=== PATIENT | male | born 1995 | race Caucasian/White ===

== ENCOUNTER 2017-07-15 10:38 | Emergency (ER) | payer OTHER ==
[2017-07-15] MEDS: IBUPROFEN 800 MG TAB PO (13:09)
== END 2017-07-15 14:19 | disposition home or self-care (01) ==
LOC: M ED 10:38
DX: S60.042A Contusion of left ring finger without damage to nail, initial encounter (principal); S30.0XXA Contusion of lower back and pelvis, initial encounter; W10.8XXA Fall (on) (from) other stairs and steps, initial encounter; Y92.018 Other place in single-family (private) house as the place of occurrence of the external cause; Y93.89 Activity, other specified; Y99.8 Other external cause status
CPT/HCPCS: 72072

== ENCOUNTER 2018-08-11 07:23 | Emergency (ER) | payer OTHER ==
[~2018-08-11] VITALS: Ht 170.2 cm; Wt 65.9 kg
[2018-08-11] MEDS ORDERED: LIDOCAINE 1% MDV 20ML VIAL SC ONE (08:30)
[2018-08-11] MEDS ORDERED: DERMABOND TOPICAL SKIN ADHESIVE TOP ONE (09:00)
[2018-08-11] MEDS ORDERED: KEFL500C17 PO (09:47)
[2018-08-11 09:49] VITALS: BP 126/70
== END 2018-08-11 09:57 | disposition home or self-care (01) ==
LOC: M ED 07:23
DX: S91.312A Laceration without foreign body, left foot, initial encounter (principal); X58.XXXA Exposure to other specified factors, initial encounter; Y92.099 Unspecified place in other non-institutional residence as the place of occurrence of the external cause; Y93.9 Activity, unspecified; Y99.9 Unspecified external cause status

== ENCOUNTER 2019-08-16 18:20 | Inpatient (IN) | payer OTHER ==
[~2019-08-16] VITALS: Ht 167.6 cm; Wt 62.2 kg
[~2019-08-16 18:20] MED LIST: KEFL500C17 PO
[2019-08-16] MEDS ORDERED: ONDANSETRON 4MG/2ML VIAL (J2405) IV ONE (19:00)
[2019-08-16] MEDS ORDERED: NS 1,000 ML IV ONE ×2 (19:00→20:30)
[2019-08-16] MEDS ORDERED: MORPHINE 4 MG/ML 1ML VIAL/SYRINGE (J2270) IV ONE (19:00)
[2019-08-16 19:08] LABS: BASO % 0.3 % (0.0-1.0); EOS % 0.1 % (0.0-3.0); HEMATOCRIT 49.3 % (42.0-52.0); LYMPH # 0.4 10^3/uL (1.5-5.0); LYMPH % 3.1 % (24.0-44.0); MEAN CORPUSCULAR HEMOGLOBIN 29.1 pg (27.0-33.0); MEAN CORPUSCULAR HGB CONC 34.5 g/dl (32.0-36.5); MEAN CORPUSCULAR VOLUME 84.3 fl (80.0-96.0); MONO # 0.6 10^3/uL (0.0-0.8); MONO % 4.9 % (0.0-5.0); NEUTROPHILS # 10.7 10^3/uL (1.5-8.5); NEUTROPHILS % 91.2 % (36.0-66.0); PLATELET COUNT, AUTOMATED 260 10^3/uL (150-450); RED BLOOD COUNT 5.85 10^6/uL (4.30-6.10); WHITE BLOOD COUNT 11.8 10^3/uL (4.0-10.0)
[2019-08-16 19:33] LABS: ALBUMIN 4.5 GM/DL (3.2-5.2); ALT/SGPT 28 U/L (12-78); BILIRUBIN,DIRECT 0.3 MG/DL (0.0-0.2); BILIRUBIN,TOTAL 1.5 MG/DL (0.2-1.0); LIPASE 68 U/L (73-393); TOTAL PROTEIN 7.5 GM/DL (6.4-8.2)
[2019-08-16 19:46] LABS: VENOUS BASE EXCESS -5.9 (-2.0-2.0); VENOUS HCO3 15.3 MEQ/L (23.0-27.0); VENOUS O2 SATURATION 99.5 % (60.0-80.0); VENOUS PARTIAL PRESSURE CO2 21.9 mmHg (38.0-50.0); VENOUS PARTIAL PRESSURE O2 201.8 mmHg (30.0-50.0); VENOUS PH 7.462 UNITS (7.330-7.430); VENOUS STANDARD HCO3 19.8 MEQ/L
[2019-08-16 19:54] LABS: HEMOGLOBIN A1c 12.6 %
[2019-08-16 19:58] LABS: ACETONE/KETONE 43.75 MG/DL (<2.81); CK-MB VALUE MASS < 1.0 NG/ML (<3.6); CPK CREATINE PHOSPHOKINASE 105 U/L (39-308); MB/CK RELATIVE INDEX 0.95 (< OR =4); TROPONIN I < 0.02 NG/ML (< 0.10)
[2019-08-16 20:04] LABS: INFLUENZA A AMPLIFICATION NEGATIVE (NEGATIVE); INFLUENZA B AMPLIFICATION NEGATIVE (NEGATIVE)
[2019-08-16 20:16] LABS: BLOOD UREA NITROGEN 13 MG/DL (7-18); CARBON DIOXIDE LEVEL 17 MEQ/L (21-32); CHLORIDE LEVEL 102 MEQ/L (98-107); CREATININE FOR GFR 0.98 MG/DL (0.70-1.30); GLOMERULAR FILTRATION RATE > 60.0 (>60); GLUCOSE, FASTING 291 MG/DL (70-100); POTASSIUM SERUM 3.9 MEQ/L (3.5-5.1); SODIUM LEVEL 138 MEQ/L (136-145)
[2019-08-16] MEDS ORDERED: ACETAMINOPHEN 325 MG TAB PO ONE (20:45)
[2019-08-16] MEDS ORDERED: INSULIN IV RATE CHANGE DOCUMENTATION ML/HR XX SCH (21:00)
[2019-08-16] MEDS ORDERED: KCL 20MEQ IN 100ML SWI (KRUN) 20 MEQ in IV 1 EA IV ONE ×2 (21:00)
[2019-08-16] MEDS: INSULIN HUMAN REGULAR 100 UNITS in NS 99 ML IV SCH ×2 (21:05→21:11)
--- NOTE | 2019-08-16 21:05 | HPEPDOC ---
[facility] Medical History & Physical Date of Admission Aug 16, 2019 Date of Service: Aug 16, 2019 Primary Care Physician: A Other Provider [facility] Attending Physician: MARY LOU SENIOR MD History and Physical TIME OF SERVICE: 9:30 PM CC time 40 min CHIEF COMPLAINT: Abdominal pain HISTORY OF PRESENT ILLNESS: This is a 24-year-old male who presents with complaints of 10/10 in severity constant abdominal pain that began last night He was able to sleep at this morning after drinking a sugary drink the pain reoccurred. He has also had several episodes of emesis and diarrhea. He has noticed feeling very thirsty since July. REVIEW OF SYSTEMS: 12 point review of systems negative except as listed in HPI PAST MEDICAL/ SURGICAL HISTORY: None prior to this admission SOCIAL HISTORY: He doesn't smoke. 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 HISTORY: Diabetes CVA ALLERGIES: Please see below HOME MEDICATIONS: Please see below PHYSICAL EXAMINATION: VITAL SIGNS: Please see below GEN: well-nourished / well developed/ NAD INTEGUMENT: Slightly flushed/ not jaundice HEENT: NCAT / lips acyanotic /mucus membranes dry CVS: RRR/NMRG/ no JVP / radial and dorsalis pedis pulses intact / no lower extremity edema LUNGS: clear to auscultation bilaterally on room air ABDOMEN: Contour (flat) / there are no masses or lesions / the abdomen is tympanic on percussion, soft & tender with palpation NEURO: CN 2-12 are grossly intact / speech is not dysarthric PSYCH: alert and oriented to person place and time/ able to understand and follow all commands LABORATORY DATA: See below. ASSESSMENT: Mr. Woodard is a 24-year-old male with newly diagnosed DM that is admitted for management of DKA. PLAN: 1. DKA Diagnostic made based on gluc >250 + bicarbonate <18 + BHB The trigger of DKA is likely likely new onset DM1 His A1c is 12.6% DKA MPM Score to predict risk of in hospital mortality at presentation = 0 points Plan: admit to ICU /NPO / Insulin drip per protocol/ IVF @250ml/H / f/u blood cx & UCx / f/u accuchecks Q1H, BMP Q4H, venous PH Q4H, osmol Q4H, Mag Q4H, phosp Q4H / WHEN the serum glucose is <200 + the patient is able to eat, and two of the following are met: AG <12 and/or bicarbonate >15 and/or pH >7.30 we will give him long acting insulin based on his weight and then jaime of insulin drip for 2 hours / he can received DM education in the morning / we will check autoantibodies against islet cells, GAD65, IA2 and ZnT8 to confirm that he has DM1 / he will need referral to an grinder set up operator thread tool on an out patient basis DVT PROPHYLAXIS: Lovenox DISPOSITION: Home after more than 2 midnight's stay Vital Signs Vital Signs Date Time Temp Pulse Resp B/P (MAP) Pulse Ox O2 Delivery O2 Flow Rate FiO2 08/16/19 20:50 96 98 Room Air 08/16/19 20:45 129/74 (92) 08/16/19 20:35 22 08/16/19 19:16 100.4 Laboratory Data Labs 24H Laboratory Tests 2 08/16/19 18:54: Immature Granulocyte % (Auto) 0.4, Neutrophils (%) (Auto) 91.2H, Lymphocytes (%) (Auto) 3.1L, Monocytes (%) (Auto) 4.9, Eosinophils (%) (Auto) 0.1, Basophils (%) (Auto) 0.3, Neutrophils # (Auto) 10.7H, Lymphocytes # (Auto) 0.4L, Monocytes # (Auto) 0.6, Eosinophils # (Auto) 0.0, Basophils # (Auto) 0.0, Nucleated Red Blood Cells % (auto) 0.0, Anion Gap 19H, Glomerular Filtration Rate > 60.0, Calcium Level 9.0, Total Bilirubin 1.5H, Direct Bilirubin 0.3H, Aspartate Amino Transf (AST/SGOT) 17, Alanine Aminotransferase (ALT/SGPT) 28, Alkaline Phosphatase 117, Total Creatine Kinase 105, Creatine Kinase MB < 1.0, Creatine Kinase MB Relative Index 0.95, Troponin I < 0.02, Total Protein 7.5, Albumin 4.5, Albumin/Globulin Ratio 1.50, Lipase 68L, B-Hydroxybutyrate 43.75H 08/16/19 18:55: POC Glucose (Misc Panel) 306H, POC Sodium (Misc Panel) 137, POC Potassium (Misc Panel) 3.7, POC Chloride (Misc Panel) 101, POC Total CO2 (Misc Panel) 17.0L, POC Blood Urea Nitrogen (Misc Panel 14, POC Ionized Calcium (Misc Panel) 4.4L, POC Creatinine (Misc Panel) 0.7, POC Hematocrit (Misc Panel) 52.0H 08/16/19 19:27: Influenza Type A (RT-PCR) NEGATIVE, Influenza Type B (RT-PCR) NEGATIVE 08/16/19 19:34: Estimated Mean Plasma Glucose 315H, Hemoglobin A1c 12.6 08/16/19 19:40: Blood Gas Bicarbonate Standard 19.8, Venous Blood pH 7.462H, Venous Blood Partial Pressure CO2 21.9L, Venous Blood Partial Pressure O2 201.8H, Venous Blood Total Carbon Dioxide 16.0L, Venous Blood HCO3 15.3L, Venous Blood Oxygen Saturation 99.5H, Venous Blood Base Excess -5.9L 08/16/19 20:30: Bedside Glucose (Misc Panel) 291H CBC/BMP Laboratory Tests 08/16/19 18:54 Home Medications No Active Prescriptions or Reported Meds Allergies Coded Allergies: No Known Allergies (Unverified , 07/15/17) A-FIB/CHADSVASC A-FIB History Current/History of A-Fib/PAF?: No Current PO Anticoag Therapy: No MARY LOU SENIOR MD Aug 16, 2019 21:05
[2019-08-16 21:31] LABS: VENOUS BASE EXCESS -4.4 (-2.0-2.0); VENOUS HCO3 20.1 MEQ/L (23.0-27.0); VENOUS O2 SATURATION 93.8 % (60.0-80.0); VENOUS PARTIAL PRESSURE CO2 35.4 mmHg (38.0-50.0); VENOUS PH 7.371 UNITS (7.330-7.430); VENOUS STANDARD HCO3 20.8 MEQ/L; VENOUS TOTAL CO2 21.1 MEQ/L (24.0-28.0)
[2019-08-16 21:49] LABS: OSMOLALITY SERUM 290 MOSM/KG (275-295)
[2019-08-16 22:00] LABS: BLOOD UREA NITROGEN 13 MG/DL (7-18); CALCIUM LEVEL 7.5 MG/DL (8.5-10.1); CARBON DIOXIDE LEVEL 21 MEQ/L (21-32); CHLORIDE LEVEL 107 MEQ/L (98-107); CREATININE FOR GFR 0.75 MG/DL (0.70-1.30); GLOMERULAR FILTRATION RATE > 60.0 (>60); GLUCOSE, FASTING 233 MG/DL (70-100); MAGNESIUM LEVEL 1.4 MG/DL (1.8-2.4); PHOSPHORUS LEVEL 1.7 MG/DL (2.5-4.9); POTASSIUM SERUM 3.8 MEQ/L (3.5-5.1); SODIUM LEVEL 139 MEQ/L (136-145)
[2019-08-16] MEDS ORDERED: ONDANSETRON 4MG/2ML VIAL (J2405) IV PRN (22:00)
[2019-08-16] MEDS ORDERED: HumuLIN R (REGULAR) INSULIN (NovoLIN R) **100U/ML** PER UNIT IV ONE (22:00)
[2019-08-16] MEDS ORDERED: INSULIN HUMAN REGULAR 100 UNITS in NS 99 ML IV SCH (22:00)
[2019-08-16] MEDS: INSULIN IV RATE CHANGE DOCUMENTATION ML/HR XX SCH ×2 (22:04→23:05)
[2019-08-16] MEDS ORDERED: GLUCAGON FOR INJ 1 MG VIAL (J1610) SC PRN (22:30)
[2019-08-16] MEDS ORDERED: GLUCOSE 4 GM CHEW TABLET PO PRN (22:30)
[2019-08-16] MEDS ORDERED: DEXTROSE 50% 50 ML SYRINGE IV PRN (22:30)
[2019-08-16] MEDS ORDERED: POTASSIUM PHOSPHATE INJ 15 MMOL in D5W 250 ML IV ONE (23:00)
[2019-08-16] MEDS ORDERED: MAG SULF 1GM/100ML (MAG RUN) 1 GM in IV 1 EA IV ONE (23:00)
[2019-08-16] MEDS ORDERED: POTASSIUM CHLORIDE INJ 30 MEQ in NS 0.45% 1,000 ML IV SCH (23:00)
[2019-08-16] MEDS: POTASSIUM CHLORIDE INJ 30 MEQ in D5W/0.45% SODIUM CHLORIDE 1,000 ML IV SCH (23:06)
[2019-08-16] MEDS ORDERED: LEVEMIR (INSULIN DETEMIR) 1 UNITS/0.01ML As Ordered ONE (23:33)
[2019-08-17] MEDS ORDERED: LEVEMIR (INSULIN DETEMIR) 1 UNITS/0.01ML SC ONE
[2019-08-17] MEDS ORDERED: INSULIN IV RATE CHANGE DOCUMENTATION ML/HR XX SCH (00:15)
[2019-08-17] MEDS ORDERED: INSULIN HUMAN REGULAR 100 UNITS in NS 99 ML IV SCH (01:00)
[2019-08-17] MEDS: POTASSIUM CHLORIDE INJ 30 MEQ in D5W/0.45% SODIUM CHLORIDE 1,000 ML IV SCH (02:43)
[2019-08-17 03:16] LABS: VENOUS BASE EXCESS -3.8 (-2.0-2.0); VENOUS O2 SATURATION 98.8 % (60.0-80.0); VENOUS PARTIAL PRESSURE CO2 37.6 mmHg (38.0-50.0); VENOUS PARTIAL PRESSURE O2 152.1 mmHg (30.0-50.0); VENOUS PH 7.365 UNITS (7.330-7.430); VENOUS STANDARD HCO3 21.3 MEQ/L; VENOUS TOTAL CO2 22.2 MEQ/L (24.0-28.0)
[2019-08-17 03:42] LABS: OSMOLALITY SERUM 290 MOSM/KG (275-295)
[2019-08-17 03:44] LABS: BLOOD UREA NITROGEN 11 MG/DL (7-18); CALCIUM LEVEL 7.3 MG/DL (8.5-10.1); CARBON DIOXIDE LEVEL 24 MEQ/L (21-32); CHLORIDE LEVEL 109 MEQ/L (98-107); CREATININE FOR GFR 0.83 MG/DL (0.70-1.30); GLOMERULAR FILTRATION RATE > 60.0 (>60); GLUCOSE, FASTING 142 MG/DL (70-100); PHOSPHORUS LEVEL 4.3 MG/DL (2.5-4.9); POTASSIUM SERUM 3.9 MEQ/L (3.5-5.1); SODIUM LEVEL 143 MEQ/L (136-145)
[2019-08-17 04:00] VITALS: BP 121/65
[2019-08-17] MEDS ORDERED: POTASSIUM PHOSPHATE INJ 15 MMOL in D5W 250 ML IV ONE (04:00)
[2019-08-17] MEDS ORDERED: KCL 40MEQ in NS 1000ML 1,000 ML IV SCH (04:00)
[2019-08-17] MEDS ORDERED: HumaLOG INSULIN (NovoLOG) PER UNIT SC SCH ×5 (06:00→21:00)
[2019-08-17] MEDS ORDERED: DEXTROSE 50% 50 ML SYRINGE IV PRN (08:45)
[2019-08-17] MEDS ORDERED: GLUCAGON FOR INJ 1 MG VIAL (J1610) SC PRN (08:45)
[2019-08-17] MEDS ORDERED: GLUCOSE 4 GM CHEW TABLET PO PRN (08:45)
[2019-08-17] MEDS ORDERED: ENOXAPARIN 40 MG/0.4 ML SYRINGE (J1650) SC SCH (09:00)
[2019-08-17 10:00] VITALS: BP 121/65
--- NOTE | 2019-08-17 11:59 | IPNPDOC ---
Subjective Date Seen The patient was seen on 08/17/19. 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 He feels a whole lot better this morning. Does have a truncal rash, non-pruritic that was noticed by RN this am. He has no known drug allergies, he did receive morphine yesterday and long acting insulin last night. Objective Physical Examination General Exam: Positive: Alert, No Acute Distress Eye Exam: Positive: PERRLA, Conjunctiva & lids normal, EOMI; Negative: Sclera icteric ENT Exam: Positive: Atraumatic, Mucous membr. moist/pink, Pharynx Normal Neck Exam: Positive: Supple; Negative: JVD, thyromegaly Chest Exam: Positive: Clear to auscultation, Normal air movement Heart Exam: Positive: Rate Normal, Regular Rhythm, Normal S1, Normal S2; Negative: Murmurs, Rubs Telemetry: Positive: No significant arrhythmia Abdomen Exam: Positive: Normal bowel sounds, Soft; Negative: Tenderness, Hepatospenomegaly Male Exam: Positive: Normal Genital Exam Extremity Exam: Positive: Normal pulses; Negative: Clubbing, Cyanosis, Edema Skin Exam: Positive: Nl turgor and temperature, Rash (macular rash); Negative: Breakdown Neuro Exam: Positive: Normal Gait, Normal Speech, Cranial Nerves 3-12 NL, Reflexes 2+ Psych Exam: Positive: Mental status NL, Mood NL, Oriented x 3 Assessment /Plan Assessment # Acute DKA due to newly diagnosed Type I DM - DKA has resolved - adjust levemir 15 units qhs, and novolog SS - will likely go home with this combination - Diabetic teaching - IS, Zinc transporter, IA-2 nd SIERRA-65 antibodies pending # Hypomagnesia # Hypophosphatemia - all related to acute DKA - resolved, and repeat levels are normal # DVT prophylaxis - low risk for DVT - stop lovenox - may ambulate for DVT prophylaxis Dispo: Home in am Plan/VTE VTE Prophylaxis Ordered?: No VTE Exclusion Mechanical Proph: Low Risk for VTE VTE Exclusion Pharmacological: At Low Risk for VTE VS, I&O, 24H, Fishbone Vital Signs/I&O Vital Signs Date Time Temp Pulse Resp B/P (MAP) Pulse Ox O2 Delivery O2 Flow Rate FiO2 08/17/19 10:00 97.9 69 15 121/65 (83) 99 Room Air I&O- Last 24 Hours up to 6 AM 08/17/19 06:00 Intake Total 1100 ml Output Total 800 ml Balance 300 ml Laboratory Data 24H LABS Laboratory Tests 2 08/16/19 18:54: Immature Granulocyte % (Auto) 0.4, Neutrophils (%) (Auto) 91.2H, Lymphocytes (%) (Auto) 3.1L, Monocytes (%) (Auto) 4.9, Eosinophils (%) (Auto) 0.1, Basophils (%) (Auto) 0.3, Neutrophils # (Auto) 10.7H, Lymphocytes # (Auto) 0.4L, Monocytes # (Auto) 0.6, Eosinophils # (Auto) 0.0, Basophils # (Auto) 0.0, Nucleated Red Blood Cells % (auto) 0.0, Anion Gap 19H, Glomerular Filtration Rate > 60.0, Calcium Level 9.0, Total Bilirubin 1.5H, Direct Bilirubin 0.3H, Aspartate Amino Transf (AST/SGOT) 17, Alanine Aminotransferase (ALT/SGPT) 28, Alkaline Phosphatase 117, Total Creatine Kinase 105, Creatine Kinase MB < 1.0, Creatine Kinase MB Relative Index 0.95, Troponin I < 0.02, Total Protein 7.5, Albumin 4.5, Albumin/Globulin Ratio 1.50, Lipase 68L, B-Hydroxybutyrate 43.75H 08/16/19 18:55: POC Glucose (Misc Panel) 306H, POC Sodium (Misc Panel) 137, POC Potassium (Misc Panel) 3.7, POC Chloride (Misc Panel) 101, POC Total CO2 (Misc Panel) 17.0L, POC Blood Urea Nitrogen (Misc Panel 14, POC Ionized Calcium (Misc Panel) 4.4L, POC Creatinine (Misc Panel) 0.7, POC Hematocrit (Misc Panel) 52.0H 08/16/19 19:27: Influenza Type A (RT-PCR) NEGATIVE, Influenza Type B (RT-PCR) NEGATIVE 08/16/19 19:34: Estimated Mean Plasma Glucose 315H, Hemoglobin A1c 12.6 08/16/19 19:40: Blood Gas Bicarbonate Standard 19.8, Venous Blood pH 7.462H, Venous Blood Partial Pressure CO2 21.9L, Venous Blood Partial Pressure O2 201.8H, Venous Blood Total Carbon Dioxide 16.0L, Venous Blood HCO3 15.3L, Venous Blood Oxygen Saturation 99.5H, Venous Blood Base Excess -5.9L 08/16/19 20:30: Bedside Glucose (Misc Panel) 291H 08/16/19 21:23: Blood Gas Bicarbonate Standard 20.8, Venous Blood pH 7.371, Venous Blood Partial Pressure CO2 35.4L, Venous Blood Partial Pressure O2 72.0H, Venous Blood Total Carbon Dioxide 21.1L, Venous Blood HCO3 20.1L, Venous Blood Oxygen Saturation 93.8H, Venous Blood Base Excess -4.4L, Blood Gas Puncture Site UNKNOWN, Anion Gap 11, Glomerular Filtration Rate > 60.0, Osmolality 290, Lactic Acid Level 1.1, Calcium Level 7.5#L, Phosphorus Level 1.7L, Magnesium Level 1.4L 08/16/19 22:01: Bedside Glucose (Misc Panel) 192H 08/16/19 23:00: Bedside Glucose (Misc Panel) 110H 08/16/19 23:41: Bedside Glucose (Misc Panel) 159H 08/17/19 00:09: Bedside Glucose (Misc Panel) 218H 08/17/19 01:00: Bedside Glucose (Misc Panel) 179H 08/17/19 02:23: Bedside Glucose (Misc Panel) 115H 08/17/19 03:10: Blood Gas Puncture Site UNKNOWN, Blood Gas Bicarbonate Standard 21.3, Venous Blood pH 7.365, Venous Blood Partial Pressure CO2 37.6L, Venous Blood Partial Pressure O2 152.1H, Venous Blood Total Carbon Dioxide 22.2L, Venous Blood HCO3 21.0L, Venous Blood Oxygen Saturation 98.8H, Venous Blood Base Excess -3.8L, Anion Gap 10, Glomerular Filtration Rate > 60.0, Osmolality 290, Calcium Level 7.3L, Phosphorus Level 4.3#, Magnesium Level 2.0 08/17/19 06:09: Bedside Glucose (Misc Panel) 148H 08/17/19 08:53: Magnesium Level 1.9 08/17/19 09:16: Bedside Glucose (Misc Panel) 134H 08/17/19 11:34: Bedside Glucose (Misc Panel) 169H CBC/BMP Laboratory Tests 08/16/19 18:54 08/16/19 21:23 08/17/19 03:10 Microbiology Microbiology 08/16/19 Blood Culture, Received Pending CHEMA FERREAR MD Aug 17, 2019 11:59
[2019-08-17] MEDS: HumaLOG INSULIN (NovoLOG) PER UNIT SC SCH ×2 (13:02→17:56)
[2019-08-17 14:00] VITALS: BP 120/65
[2019-08-17 20:00] VITALS: BP 116/65
[2019-08-17] MEDS ORDERED: LEVEMIR (INSULIN DETEMIR) 1 UNITS/0.01ML SC SCH (21:00)
[2019-08-18 06:00] VITALS: BP 118/59
[2019-08-18 06:31] LABS: HEMATOCRIT 37.9 % (42.0-52.0); HEMOGLOBIN 12.8 g/dl (13.5-17.5); MEAN CORPUSCULAR HEMOGLOBIN 29.6 pg (27.0-33.0); MEAN CORPUSCULAR HGB CONC 33.8 g/dl (32.0-36.5); MEAN CORPUSCULAR VOLUME 87.7 fl (80.0-96.0); PLATELET COUNT, AUTOMATED 193 10^3/uL (150-450); RED BLOOD COUNT 4.32 10^6/uL (4.30-6.10); WHITE BLOOD COUNT 4.2 10^3/uL (4.0-10.0)
[2019-08-18 06:51] LABS: BLOOD UREA NITROGEN 9 MG/DL (7-18); CALCIUM LEVEL 8.3 MG/DL (8.5-10.1); CARBON DIOXIDE LEVEL 32 MEQ/L (21-32); CHLORIDE LEVEL 109 MEQ/L (98-107); CREATININE FOR GFR 0.76 MG/DL (0.70-1.30); GLOMERULAR FILTRATION RATE > 60.0 (>60); GLUCOSE, FASTING 85 MG/DL (70-100); POTASSIUM SERUM 3.5 MEQ/L (3.5-5.1); SODIUM LEVEL 142 MEQ/L (136-145)
[2019-08-18] MEDS: HumaLOG INSULIN (NovoLOG) PER UNIT SC SCH ×2 (07:30→11:56)
[2019-08-18] MEDS ORDERED: INSUDET SC (12:05)
[2019-08-18] MEDS ORDERED: LANC30MI XX (13:07)
[2019-08-18] MEDS ORDERED: ALCOPAD25 TOP (13:07)
[2019-08-18] MEDS ORDERED: BLOOKIT21 XX (13:07)
[2019-08-18] MEDS ORDERED: INSU1MIS20 SC (13:07)
[2019-08-18] MEDS ORDERED: GLUC1TES2 XX (13:07)
--- NOTE | 2019-08-18 15:37 | DS.PDOC ---
Discharge Summary General Date of Admission Aug 16, 2019 at 20:50 Date of Discharge 08/18/19 Discharge Summary PROCEDURES PERFORMED DURING STAY: None. ADMITTING DIAGNOSES: 1. Abdominal pain, DKA. DISCHARGE DIAGNOSES: 1. Diabetic ketoacidosis, new onset diabetes mellitus type 1, hypophosphatemia, hypomagnesemia COMPLICATIONS/CHIEF COMPLAINT: Abdominal Pain, Dka. HISTORY OF PRESENT ILLNESS: his is a 24-year-old male who presents with complaints of 10/10 in severity constant abdominal pain that began last night He was able to sleep at this morning after drinking a sugary drink the pain reoccurred. He has also had several episodes of emesis and diarrhea. He has noticed feeling very thirsty since July.. HOSPITAL COURSE: Patient was diagnosed with acute DKA due to new onset and newly diagnosed diabetes mellitus type 1 , she was started on IV fluid and insulin drip DKA subsequently resolved with IV fluids and insulin. Patient was started on Levemir 15 units every night which she is been tolerated very well and maintaining his locals numbers very well Patient will be discharged home on current regimen of insulin with all supplies and he'll follow with the PCP for possible endocrine referral Diabetic teaching and insulin teaching was done on the floor before discharge Patient also received magnesium and phosphate supplements during his stay in the hospital Is clinically stable and will be discharged home today on all insulin. Further treatment as per his PCP and endocrine . DISCHARGE MEDICATIONS: Please see below. ALLERGIES: Please see below. PHYSICAL EXAMINATION ON DISCHARGE: VITAL SIGNS: Please see below. GENERAL: Within normal limits HEENT: PERRLA, extraocular muscles intact NECK: Supple, no JVD, no lymphadenopathy CARDIOVASCULAR EXAMINATION: S1, S2, regular RESPIRATORY EXAMINATION: Clear to A&P ABDOMINAL EXAMINATION: , Soft, nontender, bowel sound present EXTREMITIES: No clubbing, cyanosis, edema SKIN: Normal NEUROLOGICAL EXAMINATION: No focal motor sensory deficit PSYCHIATRIC EXAMINATION: Normal LABORATORY DATA: Please see below. IMAGING: Not applicable PROGNOSIS: Good ACTIVITY: As tolerated. DIET: /consistent carbohydrate diet DISCHARGE PLAN: Discharged home DISPOSITION: , Self-Care. DISCHARGE INSTRUCTIONS: 1. Follow with PCP in one week for endocrine referral, fingerstick blood sugar every before meals and at bedtime, call M.D. if less than 70 or more than 400. ITEMS TO FOLLOWUP ON ON OUTPATIENT: 1. Follow PCP in one week. DISCHARGE CONDITION: Stable. TIME SPENT ON DISCHARGE: 35 minutes. Vital Signs/I&Os Vital Signs Date Time Temp Pulse Resp B/P (MAP) Pulse Ox O2 Delivery O2 Flow Rate FiO2 08/18/19 06:00 97.3 53 16 118/59 (78) 98 Room Air I&O- Last 24 Hours up to 6 AM 08/18/19 06:00 Intake Total 2275 ml Output Total 0 ml Balance 2275 ml Laboratory Data Labs 24H Laboratory Tests 2 08/17/19 17:53: Bedside Glucose (Misc Panel) 107H 08/17/19 20:34: Bedside Glucose (Misc Panel) 202H 08/18/19 05:56: Nucleated Red Blood Cells % (auto) 0.0 08/18/19 05:57: Anion Gap 1L, Glomerular Filtration Rate > 60.0, Calcium Level 8.3L 08/18/19 08:45: Bedside Glucose (Misc Panel) 178H 08/18/19 11:28: Bedside Glucose (Misc Panel) 165H CBC/BMP Laboratory Tests 08/18/19 05:56 08/18/19 05:57 FSBS Laboratory Tests Test 08/17/19 17:53 08/17/19 20:34 08/18/19 08:45 08/18/19 11:28 Range/Units Bedside Glucose (Misc Panel) 107 202 178 165 70-105 MG/DL Microbiology Microbiology 08/16/19 Blood Culture - Preliminary, Resulted No growth after 24 hours . All specim... Discharge Medications Scheduled Blood Sugar Diagnostic (Advanced Glucose Test Strips) 1 Each Strip, 1 STRIP XX ASDIRECTED Insulin Detemir (Levemir) 100 Unit/1 Ml Vial, 15 UNITS SC QHS Allergies Coded Allergies: No Known Allergies (Unverified , 07/15/17) COLLEEN LINARES MD Aug 18, 2019 15:37
== END 2019-08-18 14:03 | disposition home or self-care (01) | DRG 639 ==
LOC: M ED 18:20 → M ED INP 20:50 → ENRESERVDT 22:16 → ENRESERVTM 22:16 → M ICU 22:16 → M ED INP 23:07 → ENRESERVTM 08-17 01:53 → ENRESERVDT 08-17 01:53 → M PCU 08-17 02:34 → M MSPAV 08-17 03:24
PROVIDERS: ADMIT Internal Medicine; ATTEND Internal Medicine
DX: E10.10 Type 1 diabetes mellitus with ketoacidosis without coma (principal); R21 Rash and other nonspecific skin eruption; E83.42 Hypomagnesemia; E83.39 Other disorders of phosphorus metabolism

== ENCOUNTER 2019-09-04 21:36 | Emergency (ER) | payer OTHER ==
[~2019-09-04] VITALS: Ht 170.2 cm; Wt 64.2 kg
[~2019-09-04 21:36] MED LIST changes: +ALCOPAD25 TOP; +BLOOKIT21 XX; +GLUC1TES2 XX; +INSU1MIS20 SC; +INSUDET SC; +LANC30MI XX
[2019-09-04] MEDS: FLUORESCEIN OPHTH 1 MG STRIP OD ONE (23:42)
[2019-09-04] MEDS: TETRACAINE 0.5% OPHTH SOLN 4ML OD ONE (23:42)
[2019-09-05] MEDS ORDERED: CIPR0.3S OD (00:14)
[2019-09-05] MEDS: ACETAMINOPHEN 325 MG TAB PO ONE (00:15)
[2019-09-05] MEDS: CIPROFLOXACIN 0.3% OPHTH SOLN 2.5ML OD ONE (00:15)
[2019-09-05 00:26] VITALS: BP 139/62
== END 2019-09-05 00:29 | disposition home or self-care (01) ==
LOC: M ED 21:36
DX: S05.01XA Injury of conjunctiva and corneal abrasion without foreign body, right eye, initial encounter (principal); X58.XXXA Exposure to other specified factors, initial encounter; Y92.89 Other specified places as the place of occurrence of the external cause; Y93.89 Activity, other specified; Y99.8 Other external cause status; E11.9 Type 2 diabetes mellitus without complications; Z79.4 Long term (current) use of insulin

== ENCOUNTER 2020-06-28 21:57 | Emergency (ER) | payer OTHER ==
[~2020-06-28] VITALS: Ht 170.2 cm; Wt 74.1 kg
[~2020-06-28 21:57] MED LIST changes: +CIPR0.3S6 OD
[2020-06-28] MEDS ORDERED: NOVOINJ SC (22:18)
[2020-06-28] MEDS ORDERED: ONDANSETRON 4MG/2ML VIAL IV ONE (22:30)
[2020-06-28] MEDS ORDERED: KETOROLAC 30 MG/ML 1ML VIAL IV ONE (22:30)
[2020-06-28] MEDS ORDERED: NS 1,000 ML IV ONE ×2 (22:30→23:30)
[2020-06-28 22:50] LABS: BASO % 0.5 % (0.0-1.0); EOS # 0.2 10^3/uL (0.0-0.5); EOS % 2.4 % (0.0-3.0); HEMOGLOBIN 14.9 g/dl (13.5-17.5); LYMPH # 1.4 10^3/uL (1.5-5.0); LYMPH % 18.3 % (24.0-44.0); MEAN CORPUSCULAR HGB CONC 33.9 g/dl (32.0-36.5); MEAN CORPUSCULAR VOLUME 85.6 fl (80.0-96.0); MONO # 0.5 10^3/uL (0.0-0.8); MONO % 6.7 % (0.0-5.0); NEUTROPHILS # 5.5 10^3/uL (1.5-8.5); NEUTROPHILS % 71.8 % (36.0-66.0); PLATELET COUNT, AUTOMATED 275 10^3/uL (150-450); RED BLOOD COUNT 5.14 10^6/uL (4.30-6.10); WHITE BLOOD COUNT 7.6 10^3/uL (4.0-10.0)
[2020-06-28 23:01] LABS: INR 0.89; PROTHROMBIN TIME 12.2 SECONDS (12.5-14.3)
[2020-06-28 23:14] LABS: ALBUMIN 4.3 GM/DL (3.2-5.2); ALT/SGPT 44 U/L (12-78); AMYLASE 86 U/L (25-115); BILIRUBIN,DIRECT < 0.1 MG/DL (0.0-0.2); BILIRUBIN,TOTAL 0.2 MG/DL (0.2-1.0); BLOOD UREA NITROGEN 11 MG/DL (7-18); CALCIUM LEVEL 8.8 MG/DL (8.5-10.1); CARBON DIOXIDE LEVEL 27 MEQ/L (21-32); CHLORIDE LEVEL 106 MEQ/L (98-107); CREATININE FOR GFR 0.96 MG/DL (0.70-1.30); GLOMERULAR FILTRATION RATE > 60.0 (>60); GLUCOSE, FASTING 108 MG/DL (70-100); LIPASE 54 U/L (73-393); SODIUM LEVEL 141 MEQ/L (136-145); TOTAL PROTEIN 7.3 GM/DL (6.4-8.2)
--- NOTE | 2020-06-28 23:33 | REPVR ---
PROCEDURE INFORMATION: Exam: US Abdomen, Limited; Right Upper Quadrant Exam date and time: 06/28/2020 11:04 PM Age: 25 years old Clinical indication: Abdominal pain; Acute; Additional info: Ruq abd pain TECHNIQUE: Imaging protocol: US abdomen. Real time ultrasound with image documentation. Limited exam focused on the right upper quadrant. COMPARISON: No relevant prior studies available. FINDINGS: Liver: Normal appearing liver. Gallbladder: Normal appearing gallbladder. No evidence of gallstones. Common bile duct: Common bile duct is normal in size measuring 5 mm. Pancreas: The head and tail the pancreas are obscured by bowel gas. Right kidney: Normal appearing right kidney measuring 9.6 cm in length with no evidence of hydronephrosis. IMPRESSION: Normal appearing gallbladder. Electronically signed by: Emerson Ervin On 06/28/2020 23:32:38 PM
[2020-06-29 00:30] VITALS: BP 135/77
--- NOTE | 2020-06-29 08:04 | ECGEPIP ---
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
== END 2020-06-29 00:37 | disposition home or self-care (01) ==
LOC: M ED 21:57 → EDBD 21:57 → M ED 06-29 00:37
DX: A08.4 Viral intestinal infection, unspecified (principal); E11.9 Type 2 diabetes mellitus without complications; Z79.4 Long term (current) use of insulin; Z79.899 Other long term (current) drug therapy
CPT/HCPCS: 76705; 80053; 80076; 82150; 83605; 83690; 85025; 85610; 93005; 93041; 96361; 96374; 96375; 99285; J1885; J2405